=== PATIENT | male | born 1960 | race Caucasian/White ===

== ENCOUNTER 2024-01-15 08:51 | Emergency (ER) | payer MEDICARE, SELFPAY ==
[2024-01-15 08:53] VITALS: BP 161/88; PULSE 95; RESP 18; TEMP 36.7; O2SAT 97; BMI 23.0
--- NOTE | 2024-01-15 08:57 | PC.NURSE ---
Dr. Juarez at BS for pt eval
--- NOTE | 2024-01-15 08:59 | PC.NURSE ---
dr teran at bedside
--- NOTE | 2024-01-15 09:05 | ED_ITS ---
Discharge Plan Disposition Patient Disposition: Home, Self-Care Prescriptions Prescriptions: New tajdnkzr-zpimjuqsq-QT 3.5-10,000-1 mg/mL-unit/mL-% drops,suspension 4 drp otic (ear) TID 7 Days Qty: 10 0RF Referrals Follow up/Referrals: Provider,Referral, [Primary Care Provider] - See instructions Activity Restrictions/Add. Instructions Additional Instructions/Restrictions: Your ear foreign body was successfully removed there was evidence of underlying otitis externa likely secondary to the localized inflammation from the foreign body. A prescription of topical antibiotic ointment with steroids have been prescribed. Please follow-up with your primary care doctor if you are not improving. Clinical Impressions Clinical Impression: Ear foreign body, Otitis externa Instructions Patient Instructions: DI for Skin Abscess Discharge ED Provider: Uriah Juarez General Adult HPI General Chief complaint: Skin/Abscess/Foreign Body Stated complaint: hearing aid piece stuck in ear Time Seen by Provider: 01/15/24 08:56 Mode of Arrival: Ambulatory Source of Information: Patient Limitations: No Limitations Description of Symptoms (Recalled from ER Triage Doc. by RN): PT REPORTS RUBBER TIP OFF HEARING AID IS STUCK IN RIGHT EAR, DENIES PAIN History of Present Illness HPI narrative: Patient is a 63-year-old male presenting today with foreign body in his right ear. Had a small rubber piece of his hearing aid that was stuck in his ear. Family member who is a nurse was unable to get it out at home. States he does have mild pain. Related Data Previous Rx's Medication Instructions Recorded qpajgnlh-fucsbherx-mpvpniufm 3.5 4 drp otic (ear) TID 7 days #10 mL 01/15/24 mg-10,000 unit/mL-1 % ear drops,susp Allergies Allergy/AdvReac Type Severity Reaction Status Date / Time No Known Allergies Allergy Verified 01/15/24 09:03 [facility] Disclaimer: The information contained in this section may have been updated after the patient was seen, as this information can be updated by other users. Social History Smoking Status: Never smoker alcohol intake: never current occupational status: other Travel in the last 8 weeks: None ROS Obtained: Yes All systems reviewed & no additional complaints except as documented Physical Exam General General appearance: alert and in no apparent distress ENT ENT exam: Present other (Foreign body noted in external auditory canal of the right ear) Respiratory Respiratory exam: Present normal lung sounds bilaterally Cardiovascular Cardiovascular exam: Present regular rate, normal rhythm and Pacemaker not pacing now Neurological Exam Neurological exam: Present alert and oriented X3 Medical Decision Making Trey Inquiry Pt receiving controlled substance: No Vital Signs: 01/15/24 08:53 Temperature 98.0 F Temperature Source Oral Pulse Rate [Radial] 95 H Respiratory Rate 18 Blood Pressure [Right Arm] 161/88 H Blood Pressure Mean [Right Arm] 112 Blood Pressure Source [Right Arm] Automatic Cuff Blood Pressure Position [Right Arm] Sitting 02 Sat by Pulse Oximetry 97 Oxygen Delivery Method Room Air Medical Decision Narrative: Foreign body was visualized on physical exam and was successfully removed with alligator forceps. On reexamination there is underlying erythema and otitis externa prescription antibiotics and topical steroids have been sent in. No evidence of perforation. Return precautions emphasized. Procedures Foreign Body Removal Time Out Performed: No Site: right and ear Description of foreign body: other (Rubber component of hearing aid) Sedation/Analgesia: none Technique: manual removal and removal with forceps Confirmed by:: direct visualization Complications: none Post-procedure exam: awake, alert (Obvious external auditory canal inflammation consistent with otitis externa following successful and complete removal of foreign body) Critical Care Critical Care Time Critical Care Time: No
[2024-01-15 09:09] VITALS: BP 152/81; PULSE 74; RESP 18; TEMP 36.3; O2SAT 98
== END 2024-01-15 09:15 | disposition home or self-care (01) ==
LOC: ER 09:15
PROVIDERS: Emergency Provider Student in an Organized Health Care Education/Training Program
DX: T16.1XXA Foreign body in right ear, initial encounter (principal); H60.91 Unspecified otitis externa, right ear; W44.8XXA Other foreign body entering into or through a natural orifice, initial encounter
CPT/HCPCS: 69200; 99282

== ENCOUNTER 2024-02-02 18:00 | Outpatient (CLI) | payer MEDICARE, SELFPAY ==
[2024-02-02 18:02] LABS: Coronavirus 19, PCR Not Detected (NotDetected); Influenza A, PCR Not Detected (NotDetected); Influenza B, PCR Not Detected (NotDetected)
== END 2024-02-02 23:59 ==
LOC: LAB.DROPOF 02-03 11:59
PROVIDERS: PCP Nurse Practitioner; Visit Provider Nurse Practitioner
DX: J06.9 Acute upper respiratory infection, unspecified (principal); R09.82 Postnasal drip; R09.89 Other specified symptoms and signs involving the circulatory and respiratory systems; R50.9 Fever, unspecified
CPT/HCPCS: 87636

== ENCOUNTER 2024-02-21 18:00 | Outpatient (CLI) | payer MEDICARE, SELFPAY ==
[2024-02-21 18:47] LABS: Basophils # 0.1 K/mm3 (0-0.2); Eosinophils # 0.2 K/mm3 (0.0-0.4); Eosinophils % 2.4 % (0.1-12.0); Hematocrit 43.3 % (42.0-52.0); Hemoglobin 13.2 g/dL (14.1-18.0); Lymphocytes # 1.6 K/mm3 (0.7-4.5); Lymphocytes % 24.5 % (10-50); Mean Corpuscular HGB Conc 30.5 g/dL (31.8-35.4); Mean Corpuscular Hemoglobin 25.6 pg (27.0-31.2); Mean Platelet Volume 9.4 fl (7.4-10.4); Monocytes # 0.4 K/mm3 (0.1-1.0); Monocytes % 6.4 % (1.7-9.3); Neutrophils # 4.2 K/mm3 (1.8-7.8); Neutrophils % 65.7 % (37.0-80.0); Platelet Count 274 K/mm3 (142-424); Red Blood Count 5.15 M/mm3 (4.60-6.20); Red Cell Distribution Width 15.9 % (11.5-17.5); White Blood Count 6.4 K/mm3 (4.8-10.8)
[2024-02-21 19:11] LABS: Alanine Aminotransferase 41 U/L (12-78); Albumin Level 4.2 g/dl (3.5-5.0); Albumin/Globulin Ratio 1.6 (1.1-1.8); Alkaline Phosphatase 90 U/L (38-126); Anion Gap 11.7 mEq/L (5-15); Aspartate Amino Transferase 48 U/L (17-59); Bilirubin,Total 0.6 mg/dl (0.2-1.3); Blood Urea Nitrogen 12 mg/dl (9-20); Calcium 9.3 mg/dl (8.4-10.2); Carbon Dioxide 25 mmol/L (22.0-30.0); Chloride 105 mmol/L (98-107); Cholesterol 212 mg/dl (140-200); Estimated Glomerular Filt Rate 98 ml/min (>60); GFR (African American) 118 ML/MIN (>60); Globulin 2.6 g/dL (1.3-3.2); Glucose 79 mg/dl (74-100); Potassium 4.7 mmoL/L (3.5-5.1); Sodium 137 mmol/L (136-145); Total Protein,Serum 6.8 g/dl (6.3-8.2); Triglycerides 139 mg/dl (30-150); VLDL Cholesterol 28 mg/dL (0-40)
[2024-02-21 19:38] LABS: Chol/HDL Ratio 1.9 (1-3.5); HDL Cholesterol 112 mg/dl (40-60)
[2024-02-21 19:43] LABS: Prostate Specific Ag Screen 8.4 ng/ml (0.0-4.0); Thyroid Stimulating Hormone 0.46 uIU/mL (0.465-4.68)
[2024-02-21 20:01] LABS: Vitamin B12 634 pg/mL (239-931)
[2024-02-21 21:03] LABS: Hemoglobin A1C 5.8 % (4.0-6.0)
[2024-02-21 21:13] LABS: Creatinine,Urine Random 130 mg/dL (Not Estab.)
[2024-02-21 21:18] LABS: Microalbumin/Creatinine Ratio 29.3
== END 2024-02-21 23:59 | disposition home or self-care (01) ==
LOC: LAB.DROPOF 02-22 10:59
PROVIDERS: PCP Nurse Practitioner; Visit Provider Nurse Practitioner
DX: I10 Essential (primary) hypertension (principal); I25.10 Atherosclerotic heart disease of native coronary artery without angina pectoris; E78.5 Hyperlipidemia, unspecified; J44.9 Chronic obstructive pulmonary disease, unspecified; Z12.5 Encounter for screening for malignant neoplasm of prostate; Z79.899 Other long term (current) drug therapy
CPT/HCPCS: 80053; 80061; 82043; 82570; 82607; 83036; 84443; 85025; G0103

== ENCOUNTER 2024-03-05 08:57 | Outpatient (POV) | payer MEDICARE, MEDICAID, SELFPAY ==
[2024-03-05 09:28] VITALS: BP 148/91; PULSE 104; RESP 18; O2SAT 98; BMI 23.0
--- NOTE | 2024-03-05 10:09 | XR_ITS ---
FINAL REPORT CLINICAL HISTORY: MID/LOW BACK PAIN COMPARISON: None FINDINGS: 5 views of the lumbar spine were obtained. There is no evidence of fracture or dislocation. Mild and moderate degenerative changes present. There is vacuum phenomenon present at the L3-4 level. Multilevel osteophytes are noted as well as a mild leftward curvature of the lumbar spine. Vascular calcifications are present. IMPRESSION: No acute bony abnormality. Mild and moderate degenerative change as described. Reviewed, Interpreted and Dictated by Adebayo Doty III, MD Transcribed by Flakita Dumont Authenticated and [facility]
--- NOTE | 2024-03-05 10:09 | XR_ITS ---
FINAL REPORT CLINICAL HISTORY: MID/LOW BACK PAIN COMPARISON: None FINDINGS: AP, lateral, and swimmer's views of the thoracic spine were obtained. There is no prior exam for comparison. There is no acute fracture. There is mild degenerative change with small osteophytes and a mild leftward curvature. Vertebral body height is preserved. Paraspinal soft tissues are within normal limits. IMPRESSION: Mild degenerative change as described. No acute bony abnormality identified. Reviewed, Interpreted and Dictated by Adebayo Doty III, MD Transcribed by Flakita Dumont Authenticated and . [facility]
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
== END 2024-03-05 23:59 | disposition home or self-care (01) ==
PROVIDERS: PCP Nurse Practitioner; Visit Provider Nurse Practitioner Family
DX: M54.50 Low back pain, unspecified; G89.4 Chronic pain syndrome; M54.16 Radiculopathy, lumbar region; M54.6 Pain in thoracic spine
CPT/HCPCS: 72072; 72110; 99202; G0463

== ENCOUNTER 2024-03-08 12:50 | Outpatient (CLI) | payer MEDICARE, MEDICAID, SELFPAY ==
--- NOTE | 2024-03-08 12:51 | CT_ITS ---
FINAL REPORT TECHNIQUE: Thin section axial images were obtained from the lung apices to the upper abdomen by computed tomography. Reformatted images were obtained and reviewed. This study was performed with techniques to keep radiation doses al low as reasonably achievable (ALARA). Individualized dose reduction techniques using automated exposure control or adjustment of mA and/or kV according to the patient's size were employed. CLINICAL HISTORY: lung cancer screening. former smoke for 20 yrs, 1 pk per day. copd. FINDINGS: CHEST CT LOW DOSE CTDI vol (mGy): 2.90 DLP (mGy-cm): 120.63 There is severe coronary artery calcification. There are borderline sized mediastinal nodes. There is no axillary adenopathy. The heart is normal in size. There is no pericardial or pleural effusion. There is mild emphysema and mild pulmonary scarring. Lung window images demonstrate no suspicious infiltrate or nodule. Limited images of the upper abdomen reveals cholecystectomy. IMPRESSION: Severe coronary artery calcification. Lung-RADS category 1S. Recommend 12 month follow up low dose chest CT. Reviewed, Interpreted and Dictated by Adebaoy Doty III, MD Transcribed by Laquita Rodriguez Authenticated and [facility]
== END 2024-03-08 23:59 | disposition home or self-care (01) ==
LOC: RAD 12:51
PROVIDERS: PCP Nurse Practitioner; Visit Provider Nurse Practitioner
DX: Z87.891 Personal history of nicotine dependence (principal); Z12.2 Encounter for screening for malignant neoplasm of respiratory organs
CPT/HCPCS: 71271

== ENCOUNTER 2024-03-22 08:20 | Outpatient (CLI) | payer MEDICARE, MEDICAID, SELFPAY ==
--- NOTE | 2024-03-22 | MR_ITS ---
FINAL REPORT CLINICAL HISTORY: MID AND LOW BACK PAIN X'S CHRONIC. NKI. COMPARISON: None FINDINGS: Multiplanar MR imaging of the lumbar spine was performed without contrast. On the sagittal T2-weighted images, there is abnormal decreased signal throughout the lumbar discs. There is moderate loss of height at L1-2, L2-3, and L3-4. Endplate reactive signal changes are noted anteriorly at L3-4. L1-2: There is no significant canal stenosis or neural foraminal narrowing. L2-3: Mild diffuse disc bulge. Mild endplate hypertrophy. Mild to moderate right and mild left neuroforaminal narrowing. L3-4: Moderate diffuse disc bulge. Left posterolateral disc protrusion. Moderate right and moderate to high-grade left neuroforaminal narrowing. L4-5: Moderate diffuse disc bulge. Endplate hypertrophy. Moderate to high-grade bilateral neuroforaminal narrowing. L5-S1: There is no significant canal stenosis or neural foraminal narrowing. IMPRESSION: Moderate to high-grade neuroforaminal narrowing on the left at L3-4 and bilaterally at L4-5. Reviewed, Interpreted and Dictated by Zac Quesada MD Transcribed by Malia Fallon Authenticated and [facility]
--- NOTE | 2024-03-22 | MR_ITS ---
FINAL REPORT CLINICAL HISTORY: MID AND LOW BACK PAIN X'S CHRONIC. NKI. COMPARISON: None FINDINGS: Multiplanar MR imaging of the thoracic spine was performed without contrast. On the sagittal T2-weighted images, there is mild decrease signal in the mid and lower thoracic discs. There is minimal indentation of the superior endplate of a lower thoracic vertebra. There is no associated marrow edema. Findings are best seen on image 6 of series 10. The thoracic spinal cord has an unremarkable appearance without evidence of mass, edema or syrinx. On the axial images, there is no evidence of disc bulge or protrusion. There is no evidence of significant canal stenosis. No paraspinous soft tissue abnormality is seen. IMPRESSION: Mild loss of height at the superior endplate of a mid thoracic vertebra, probably due to a Schmorl's node. Reviewed, Interpreted and Dictated by Zac Quesada MD Transcribed by Malia Fallon Authenticated and [facility]
== END 2024-03-22 23:59 | disposition home or self-care (01) ==
LOC: RAD 08:20
PROVIDERS: PCP Nurse Practitioner; Visit Provider Nurse Practitioner Family
DX: M54.6 Pain in thoracic spine (principal); M54.50 Low back pain, unspecified
CPT/HCPCS: 72146; 72148

== ENCOUNTER 2024-04-05 09:47 | Outpatient (POV) | payer MEDICARE, MEDICAID, SELFPAY ==
[2024-04-05 09:55] VITALS: BP 158/94; BP 161/94; PULSE 88; RESP 16; O2SAT 96; BMI 23.3
--- NOTE | 2024-04-05 10:32 | A.OFFVIS_ITS ---
[facility] Pain Management SOAP Note Subjective:: Patient is a pleasant 63-year-old male who presents today for thoracic and lumbar MRI imaging and psychological evaluation follow-up. Today he rates his pain a 6 out of 10. Patient denies any trauma or injury. He does state that he continues to have the chronic pain throughout his mid to low back as well as bilateral shoulders and neuropathy in his feet. Patient states the pain is constant and is an aching, throbbing sensation with numbness and tingling. Patient states that it does interfere with his ability perform activities of daily living such as cooking and cleaning. Patient does state that he has continued to try conservative measures including oral medication, heat and ice, topicals, physical therapy, chiropractor therapy with minimal relief. Patient has been to see a neurosurgeon in the past and was advised to not do surgery because if he ended up having a fusion in the 1 area he would inevitably have to have fusions down the route. Patient does state that he is not interested in going that route. Patient at our last visit was discussed about the intrathecal pain pump trial. He states he did review all the information and would like to proceed forward with this plan of care. Patient has been to the psychologist for the evaluation however he has not heard on the results. Patient is prescribed [place] from an outside provider. His Trey has been reviewed and is appropriate. Review of Systems: General: No recent weight changes, no fever, no sleep disturbances Respiratory: No cough, no shortness of air, no recurring pulmonary infections Cardiovascular/peripheral vascular: No chest pain, no palpitations, no edema, no shortness of breath Gastrointestinal: No new onset incontinence, normal bowel movements reported Genitourinary: No new onset incontinence Musculoskeletal: Low back pain Psychiatric: [Normal mood/affect] Neurological: [Denies weakness in extremities], [denies balance issues] Objective:: Physical Exam: General: Alert and oriented x3, no acute distress, pleasant and cooperative Lungs: Respirations even and unlabored, symmetrical chest expansion Eyes: PERRL Musculoskeletal: Flexion and extension of lumbar [spine] somewhat guarded secondary to pain, [antalgic gait noted] Neurological: Speech clear, no gross sensory deficit Assessment:: 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 I have reviewed over again the risk and benefits of the intrathecal pain pump trial and he would like to proceed forward with this plan of care. Patient is not on any blood thinners. Patient did have a psychological evaluation and was deemed an appropriate candidate for this device. Due to limited availability here at the [facility] we will plan on submitting to insurance for the intrathecal pain pump trial under fluoroscopy to be done at the [facility] location. Patient is agreeable to this plan of care. Patient has tried and failed conservative therapy including continued at home exercising and stretching for longer than 6 weeks. We will forward our notes to the [facility] and they will reach out to this patient with date and time of this procedure. Patient has been instructed to contact the clinic with any concerns before the next appointment. Dr. Sky has reviewed this note and agrees with this plan of care. This note was dictated using voice recognition software and make contain errors or omissions. [facility] Disclaimer: The information contained in this section may have been updated after the patient was seen, as this information can be updated by other users. Medical History (Updated 04/05/24 @ 11:03 by Antoinette Walker [facility]) Elevated PSA measurement Personal history of smoking Screening for malignant neoplasm of colon COPD (chronic obstructive pulmonary disease) Hyperlipidemia CAD (coronary artery disease) Essential hypertension Chronic back pain Hypertension Surgical History History of colonoscopy (~1999) History of heart artery stent Hx of cholecystectomy H/O hernia repair H/O knee surgery H/O shoulder surgery History of hip surgery Family History Other Alzheimer's dementia Cancer Diabetes Heart attack Hypertension Social History (Updated 03/05/24 @ 09:29 by Luzmaria Elizabeth RN) Smoking Status: Never smoker alcohol intake: never current occupational status: other Travel in the last 8 weeks: None
== END 2024-04-05 23:59 | disposition home or self-care (01) ==
LOC: SC.PAIN 09:47
PROVIDERS: PCP Nurse Practitioner; Visit Provider Nurse Practitioner Family
DX: M51.14 Intervertebral disc disorders with radiculopathy, thoracic region (principal); M51.16 Intervertebral disc disorders with radiculopathy, lumbar region; M25.511 Pain in right shoulder; M25.512 Pain in left shoulder; M25.559 Pain in unspecified hip; G89.4 Chronic pain syndrome; G62.9 Polyneuropathy, unspecified
CPT/HCPCS: 99212; G0463

== ENCOUNTER 2024-07-23 09:39 | Emergency (ER) | payer MEDICARE, MEDICAID, SELFPAY ==
[2024-07-23] VITALS (9 sets, daily range): BP systolic 128–186; BP diastolic 75–111; PULSE 55–90; RESP 16–20; TEMP 36.8; O2SAT 94–98; BMI 23.7
--- NOTE | 2024-07-23 09:45 | ECG_ITS ---
APPROVED REPORT Exam: Resting ECG HR:90 bpm ECG Measurements Heart Rate 90 AXES VA 139 P 36 QRSd 138 QRS 106 QT 373 T 50 QTc 421 Conclusion SINUS RHYTHM WITH OCCASIONAL VENTRICULAR PREMATURE COMPLEXES WITH OCCASIONAL SUPRAVENTRICULAR PREMATURE COMPLEXES RIGHT AXIS DEVIATION [QRS AXIS > 100] RIGHT BUNDLE BRANCH BLOCK [120+ ms QRS DURATION, UPRIGHT V1, 40+ ms S IN I/aVL/V4/V5/V6] ABNORMAL ECG Electronically signed by : Julian Hatfield, 07/23/2024 17:36:26
--- NOTE | 2024-07-23 09:55 | HMH.EDGENADL ---
Discharge Plan Disposition Patient Disposition: Home, Self-Care Condition: Good Prescriptions Prescriptions: No Action aspirin [Adult Aspirin Regimen] 81 mg tablet,delayed release (DR/EC) 81 mg PO DAILY omeprazole 40 mg capsule,delayed release(DR/EC) 40 mg PO .PRN rosuvastatin 40 mg tablet 40 mg PO DAILY nitroglycerin 0.4 mg tablet, sublingual 0.4 mg sublingual Q5M PRN (Reason: Chest Pain) Rx Instructions: do not exceed 3 doses per episode Striverdi Respimat 2.5 mcg/actuation mist 2 inh inhalation DAILY albuterol sulfate 90 mcg/actuation HFA aerosol inhaler 2 puff inhalation QID cetirizine 10 mg tablet 10 mg PO DAILY Qty: 30 5RF olmesartan 20 mg tablet 20 mg PO DAILY Qty: 30 2RF Referrals Follow up/Referrals: Ruthie Pillai APRN [Primary Care Provider] - See instructions Steve Carter MD [Staff Physician] - See instructions Activity Restrictions/Add. Instructions Additional Instructions/Restrictions: Follow-up with cardiology as soon as possible. They will call you with an appointment. If they do not call you by the end of today, give them a call tomorrow. Return to the emergency department if you develop chest pain, worsening shortness of breath, or become concerned for your health. Please follow up with your primary care provider in 2-3 days. Please return to ED if your symptoms worsen, change in location, change in severity, new symptoms develop or if you become concerned for your health. Clinical Impressions Clinical Impression: Heart palpitations, Chest pain, Asymptomatic hypertensive urgency Print Language Print Language: [place]ralt[place] Discharge ED Provider: Julian Hatfield Adult HPI General Chief complaint: Chest Pain Stated complaint: High BP, heart palp, Time Seen by Provider: 07/23/24 09:54 Mode of Arrival: Ambulatory Source of Information: Patient Limitations: No Limitations Description of Symptoms (Recalled from ER Triage Doc. by RN): Pt c/o uncontrolled BP over the last 2 days. Pt has had a PA back in 2005 and has 3 stents. History of Present Illness HPI narrative: Patient is a 63-year-old male with history of hypertension, hyperlipidemia, chronic low back pain and chronic leg pain, CAD s/p PCI in 2005. Patient is concerned about high blood pressure. He is currently on olmesartan 20 mg daily. He reports that Tuesday he had some anterior chest pain that did not radiate. Not made worse by exertion. He reports that he took 1 sublingual nitroglycerin and his chest pain improved, but he developed a headache. During that time, his blood pressure dropped to systolic in the 90s. He reports otherwise his systolic blood pressures up in the 170s to 180s, and he has been feeling palpitations throughout the weekend. Again, not made worse by exertion. He reports chronic shortness of breath that has not been worse over the last week, he does have a history of COPD and is still smoking. He denies any numbness, weakness, tingling. He does have chronic pain in his bilateral legs. No difficulties urinating or stooling. Related Data Home Medications ?Medication ?Instructions ?Recorded ?Confirmed albuterol sulfate 90 mcg/actuation 2 puff inhalation QID 02/02/24 07/23/24 aerosol inhaler aspirin 81 mg tablet,delayed 81 mg PO DAILY 02/02/24 07/23/24 release (Adult Aspirin Regimen) nitroglycerin 0.4 mg sublingual 0.4 mg sublingual Q5M PRN Chest 02/02/24 07/23/24 tablet Pain olodaterol 2.5 mcg/actuation mist 2 inh inhalation DAILY 02/02/24 07/23/24 for inhalation (Striverdi Respimat) omeprazole 40 mg capsule,delayed 40 mg PO .PRN 02/02/24 07/23/24 release rosuvastatin 40 mg tablet 40 mg PO DAILY 02/02/24 07/23/24 Previous Rx's ?Medication ?Instructions ?Recorded cetirizine 10 mg tablet 10 mg PO DAILY #30 tabs 02/02/24 olmesartan 20 mg tablet 20 mg PO DAILY #30 tabs 05/16/24 Allergies Allergy/AdvReac Type Severity Reaction Status Date / Time No Known Allergies Allergy Verified 02/21/24 08:03 [facility] Disclaimer: The information contained in this section may have been updated after the patient was seen, as this information can be updated by other users. Medical History (Updated 07/23/24 @ 12:55 by Julian Hatfield MD) Elevated PSA measurement Personal history of smoking Screening for malignant neoplasm of colon COPD (chronic obstructive pulmonary disease) Hyperlipidemia CAD (coronary artery disease) Essential hypertension Chronic back pain Hypertension Surgical History History of colonoscopy (~1999) History of heart artery stent Hx of cholecystectomy H/O hernia repair H/O knee surgery H/O shoulder surgery History of hip surgery Family History Other Alzheimer's dementia Cancer Diabetes Heart attack Hypertension Social History (Updated 03/05/24 @ 09:29 by Luzmaria Elizabeth RN) Smoking Status: Current some day smoker alcohol intake: never current occupational status: other Travel in the last 8 weeks: None ROS Obtained: Yes All systems reviewed & no additional complaints except as documented Physical Exam General General appearance: alert and in no apparent distress Head Head exam: atraumatic and normocephalic Eye Eye exam: Present PERRL and EOMI ENT ENT exam: Present normal oropharynx Neck Neck exam: Present full ROM and trachea midline Chest Chest inspection: Present symmetric chest wall rise Respiratory Respiratory exam: Present normal lung sounds bilaterally; Absent stridor Cardiovascular Cardiovascular exam: Present regular rate and normal rhythm Abdominal Exam Abdominal exam: Present soft; Absent distention or tenderness Extremities Exam Extremities exam: Present full ROM Neurological Exam Neurological exam: Present alert, oriented X3 and CN II-XII intact; Absent motor sensory deficit Psychiatric Psychiatric exam: Present normal mood Skin Skin exam: Present warm and dry Medical Decision Making Medical Records Medical records reviewed: Yes I reviewed the patient's medical records. Screening: Per USPSTF and CDC recommendations, given the prevalence of disease in our region, it is our hospital?s policy to screen for HIV and viral Hepatitis for all patients aged 18 and over and those with ongoing risk factors. Trey Inquiry Pt receiving controlled substance: No Vital Signs: 07/23/24 09:45 07/23/24 09:47 07/23/24 09:48 Temperature Pulse Rate 67 90 Pulse Rate [Right Brachial] 85 Respiratory Rate 18 Blood Pressure 186/111 H Blood Pressure [Right Arm] 186/111 H Blood Pressure Mean Blood Pressure Mean [Right Arm] 136 02 Sat by Pulse Oximetry 96 94 L 97 Oxygen Delivery Method Room Air 07/23/24 10:32 07/23/24 11:00 07/23/24 11:30 Temperature Pulse Rate 55 L 73 72 Pulse Rate [Right Brachial] Respiratory Rate 18 16 Blood Pressure 178/102 H 146/88 H 159/94 H Blood Pressure [Right Arm] Blood Pressure Mean 118 Blood Pressure Mean [Right Arm] 02 Sat by Pulse Oximetry 98 94 L 95 Oxygen Delivery Method Room Air Room Air 07/23/24 12:00 07/23/24 12:31 07/23/24 13:21 Temperature 98.2 F Pulse Rate 81 83 83 Pulse Rate [Right Brachial] Respiratory Rate 20 Blood Pressure 128/85 151/75 H 151/75 H Blood Pressure [Right Arm] Blood Pressure Mean 99 100 Blood Pressure Mean [Right Arm] 02 Sat by Pulse Oximetry 94 L 96 Oxygen Delivery Method Room Air Room Air Room Air Lab Data Lab Results 07/23/24 09:45: HIV 1&2 Antibody Rapid Nonreactive 07/23/24 09:48: WBC 9.1, RBC 5.84, Hgb 15.4, Hct 51.2, MCV 87.7, MCH 26.4 L, MCHC 30.1 L, RDW 16.3, Plt Count 283, MPV 7.2 L, Neut % (Auto) 66.9, Lymph % (Auto) 23.8, [place] % (Auto) 6.6, Eos % (Auto) 2.0, Baso % (Auto) 0.7, Neut # (Auto) 6.1, Lymph # (Auto) 2.2, [place] # (Auto) 0.6, Eos # (Auto) 0.2, Baso # (Auto) 0.1, PT 10.5, INR 0.93, Sodium 138, Potassium 4.1, Chloride 103, Carbon Dioxide 27, Anion Gap 12.1, BUN 10, Creatinine 0.80, Estimated Creat Clear 85, Estimated GFR 98, Est GFR ( Amer) 118, Glucose 141 H, Calcium 10.0, Total Bilirubin 0.8, AST 54, ALT 42, Alkaline Phosphatase 114, Troponin I 0.06 H, NT-Pro-B Natriuret Pep 163 H, Total Protein 7.7, Albumin 4.6, Globulin 3.1, Albumin/Globulin Ratio 1.5 07/23/24 11:25: Urine Color Yellow, Urine Appearance Clear, Urine pH 6.5, Ur Specific [place] <= 1.005, Urine Protein Negative, Urine Glucose (UA) Negative, Urine Ketones Negative, Urine Blood Negative, Urine Nitrate Negative, Urine Bilirubin Negative, Urine Urobilinogen 0.2, Ur Leukocyte Esterase 1+ A, Urine RBC None, Urine WBC Occasional, Ur Squamous Epith Cells Occasional, Urine Bacteria Trace 07/23/24 11:51: Troponin I 0.06 H 07/23/24 09:48 07/23/24 09:48 Orders (Tests/Meds): ORDERS Category Date Time Status XR chest 2V Stat Exams 07/23/24 10:13 Completed Complete Blood Count Auto Diff Stat Lab 07/23/24 09:48 Completed Comprehensive Metabolic Panel Stat Lab 07/23/24 09:48 Completed HIV (1&2) Antibody Rapid Stat Lab 07/23/24 09:45 Completed Hep C Ab with Reflex to RNA Stat Lab 07/23/24 09:45 Received NT Pro Brain Natriuretic Pep. Stat Lab 07/23/24 09:48 Completed Prothrombin Time INR Stat Lab 07/23/24 09:48 Completed Troponin I Q3H Lab 07/23/24 11:51 Completed Troponin I Stat Lab 07/23/24 09:48 Completed Urinalysis and Microscopic Stat Lab 07/23/24 11:25 Completed Urine Culture Stat Micro 07/23/24 11:25 Received ECG Data Tracing #1: I reviewed this ECG and interpreted as documented below: Normal sinus rhythm with a right bundle branch block, peaked T waves in the precordial leads (no hyper K on labs, no CP while here, favored to be nonspecific), no acute ischemic ST changes. intervals wnl. HEART Score History (anamnesis): Slightly suspicious ECG: Non-specific disturbance Age: 45-65 years Risk factors: 3 or more risk factors Troponin: 1-3x normal limit HEART Score: 5 Medical Decision Narrative: In summary, this 63-year-old male presents to the emergency department today with palpitations, high blood pressure. On initial evaluation patient is afebrile, hypertensive to 186/111, on repeat systolic in 170s, otherwise stable. On exam, heart is regular rate and rhythm and patient appears warm and well-perfused without significant lower extremity edema. Lung sounds are distant bilaterally with prolonged expiratory phase, no focal breath sounds. Differential diagnosis includes but is not limited to hypertensive urgency, hypertensive emergency, ACS, PA, electrolyte disturbance, MAMADOU. Based on these concerns, I ordered CBC CMP chest x-ray PT/INR. Labs personally reviewed demonstrate no evidence of anemia no leukocytosis no significant electrolyte derangement. Troponin elevated to 0.06, obtained repeat 2 hours later and stable at 0.06. Favored to be sensitive given patient not having any active chest pain and reports that it occurred a couple of days ago. No blood in the urine, creatinine within normal limits. No evidence of endorgan damage suggestive of hypertensive emergency . XR personally interpreted demonstrates no acute intrathoracic process. This is confirmed by the radiologist final read.. On reassessment patient reports improvement in his symptoms since he has been here. He was worried about his blood pressure, however after observation the emergency department, does come down on its own repeat blood pressure is 151/75. He reports no chest pain or shortness of breath while here. Nevertheless, given patient's sense of history and heart score of 5, felt reasonable to refer for high risk cardiology follow-up outpatient. Informed business support assistant office of this and they will be reaching out to him with an appointment in the coming days for both ACS workup as well as hypertension management. I considered the utility of increasing patient's antihypertensives at home, however he reported to me that he had had episodes of hypotension within the last week after self adjusting his medicines. He is instructed to not do that any longer as he needs to be on the same dose every day for consistent effect. . Strict return precautions discussed and patient management plan.. Of note, social determinants of health include difficulty accessing a specialist previously, specifically cardiology. At this time it was felt that the patient was safe to be discharged home. The patient was in agreement with this plan. The patient was given strict return precautions prior to being discharged from the emergency department. Critical Care Critical Care Time Critical Care Time: No
--- NOTE | 2024-07-23 10:03 | PC.NURSE ---
Dr. Hatfield at bedside
--- NOTE | 2024-07-23 10:13 | XR_ITS ---
FINAL REPORT TECHNIQUE: Chest PA & Lateral CLINICAL HISTORY: Nonspecific chest pain, palps COMPARISON: None FINDINGS: 2 views of the chest were performed. The heart size is normal. The mediastinum is within normal limits. There is no acute cardiopulmonary process. There are no pleural effusions. There is no pneumothorax. The bony thorax appears intact. IMPRESSION: No acute cardiopulmonary process. Reviewed, Interpreted and Dictated by Zac Quesada MD Transcribed by Thuy Jain Authenticated and [facility]
[2024-07-23 10:23] LABS: Albumin Level 4.6 g/dl (3.5-5.0); Chloride 103 mmol/L (98-107); Sodium 138 mmol/L (136-145)
[2024-07-23 10:24] LABS: Potassium 4.1 mmoL/L (3.5-5.1)
[2024-07-23 10:26] LABS: Alanine Aminotransferase 42 U/L (12-78); Albumin/Globulin Ratio 1.5 (1.1-1.8); Alkaline Phosphatase 114 U/L (38-126); Anion Gap 12.1 mEq/L (5-15); Aspartate Amino Transferase 54 U/L (17-59); Bilirubin,Total 0.8 mg/dl (0.2-1.3); Blood Urea Nitrogen 10 mg/dl (9-20); Carbon Dioxide 27 mmol/L (22.0-30.0); Creatinine Clearance Estimated 85 mL/min (50-200); Estimated Glomerular Filt Rate 98 ml/min (>60); GFR (African American) 118 ML/MIN (>60); Globulin 3.1 g/dL (1.3-3.2); Total Protein,Serum 7.7 g/dl (6.3-8.2)
[2024-07-23 10:27] LABS: Glucose 141 mg/dl (74-100)
[2024-07-23 10:29] LABS: Basophils # 0.1 K/mm3 (0-0.2); Basophils % 0.7 % (0.1-2.0); Eosinophils # 0.2 K/mm3 (0.0-0.4); Hematocrit 51.2 % (42.0-52.0); Hemoglobin 15.4 g/dL (14.1-18.0); Lymphocytes # 2.2 K/mm3 (0.7-4.5); Lymphocytes % 23.8 % (10-50); Mean Corpuscular HGB Conc 30.1 g/dL (31.8-35.4); Mean Corpuscular Hemoglobin 26.4 pg (27.0-31.2); Mean Corpuscular Volume 87.7 fl (80-94); Mean Platelet Volume 7.2 fl (7.4-10.4); Monocytes # 0.6 K/mm3 (0.1-1.0); Monocytes % 6.6 % (1.7-9.3); Neutrophils # 6.1 K/mm3 (1.8-7.8); Neutrophils % 66.9 % (37.0-80.0); Platelet Count 283 K/mm3 (142-424); Red Blood Count 5.84 M/mm3 (4.60-6.20); Red Cell Distribution Width 16.3 % (11.5-17.5); White Blood Count 9.1 K/mm3 (4.8-10.8)
--- NOTE | 2024-07-23 10:31 | PC.NURSE ---
pt back in room from x-ray
[2024-07-23 10:36] LABS: NT Pro Brain Natriuretic Pep. 163 pg/mL (0-125)
[2024-07-23 10:37] LABS: INR 0.93 (0.9-1.1); Prothrombin Time 10.5 seconds (10.1-12.5)
[2024-07-23 10:38] LABS: Troponin I 0.06 ng/ml (0.00-0.034)
--- NOTE | 2024-07-23 10:44 | PC.NURSE ---
ice pack and blanket given to patient.
[2024-07-23 11:20] LABS: HIV (1&2) Antibody Rapid NONREACTIVE (NONREACTIVE)
--- NOTE | 2024-07-23 11:25 | PC.NURSE ---
PT PROVIDED SANDWICH, CHIPS AND DRINK. CALL LIGHT WITHIN REACH. NO FURTHER NEEDS AT THIS TIME
[2024-07-23 11:29] LABS: Microscopic, Urine URINE MICROSCOPIC (MICROSCOPIC)
[2024-07-23 11:39] LABS: Appearance,Urine CLEAR (Clear); Bilirubin,Urine Negative (Negative); Blood, Urine Negative (Negative); Color,Urine YELLOW (Yellow); Glucose,Urine (UA) Negative (Negative); Ketones,Urine Negative (Negative); Leukocyte Esterase,Urine 1+ (Negative); Nitrate,Urine Negative (Negative); PH,Urine 6.5 (5.0-8.5); Protein,Urine Negative (Negative); Specific Gravity, Urine <= 1.005 (1.005-1.030); Urobilinogen,Urine 0.2 EU/dl (0.2)
[2024-07-23 11:49] LABS: Bacteria,Urine Trace /lpf; Squamous Epithelial Cell,Urine Occasional #/hpf (0-5); WBC,Urine Occasional #/hpf (0-3)
[2024-07-23 12:20] LABS: Troponin I 0.06 ng/ml (0.00-0.034)
--- NOTE | 2024-07-23 12:49 | PC.NURSE ---
Dr. Hatfield at bedside for pt update
--- NOTE | 2024-07-23 15:03 | PC.NURSE ---
PT NOTIFIED OF CARDIOLOGY APPT ON TUESDAY AT 5600
[2024-07-24 08:19] LABS: HCV Ab Non Reactive (Non Reactive)
== END 2024-07-23 13:22 | disposition home or self-care (01) ==
PROVIDERS: Emergency Provider Emergency Medicine; PCP Nurse Practitioner
DX: R07.9 Chest pain, unspecified (principal); I16.0 Hypertensive urgency; R00.2 Palpitations; I45.10 Unspecified right bundle-branch block; Z86.79 Personal history of other diseases of the circulatory system; Z95.5 Presence of coronary angioplasty implant and graft; I10 Essential (primary) hypertension
CPT/HCPCS: 71046; 80053; 81001; 83880; 84484; 85025; 85610; 86803; 87086; 87389; 93005; 99284

== ENCOUNTER 2024-08-06 08:45 | Outpatient (CLI) | payer MEDICARE, MEDICAID, SELFPAY ==
--- NOTE | 2024-08-06 09:02 | CA_ITS ---
APPROVED REPORT EXAM: Comprehensive 2D, Doppler, and color-flow Echocardiogram Speech And Language Clinician: Evita Paulson RT(R) Ht: 6 ft 0 in Wt: 178lbs BSA: 2.03 BP: 176/98 mmHg Indications: CP, COPD, smoker,palpitations, fatigue, HTN, SOB, CAD, abn EKG 2D Dimensions LVEF (Ward's) 49.40 % M: 52 - 72 LV Volume 145.10 mL M: 62 - 150 LV Volume Index 71.5 mL/m2 M: 34 - 74 LA Volume 43.90 mL LA Volume Index 21.63 mL/m2 (M/F) 16-34 EF AP4 58.10 % EF AP2 36.9 % EF BP 49.4 % GL Strain -18.1 % M-Mode Dimensions RVDd 2.89 cm (0.9-2.6) LA Diam 4.00 cm (1.9-4.0) LVDd 5.55 cm (3.5-5.7) LVDs 4.90 cm (3.5-5.7) IVSd 1.09 cm (0.6-1.1) PWd 0.80 cm (0.6-1.1) EF (Teich) 25.00% FS 11.70% EDV (Teich) 150.50 mL TAPSE 2.00 (<1.7) ESV (Teich) 112.80 mL LV Diastology E Decel Time 160 (160-240 msec) E/A Ratio 1.1 Mitral Valve MV E Max Phillip. 93.0 (40-130 cm/s) MV A Velocity 84.0 (40-130 cm/s) E/A Ratio 1.10 MV PHT 47.0 ms Left Ventricle The left ventricle is normal size. Left ventricular systolic function is mild to moderately decreased. There is increased LV wall thickness. There is mild to moderate global hypokinesis present. There is moderate hypokinesis of the basal anterolateral and inferolateral LV carey. Asynchronous septum. Grade 1 diastolic dysfunction is present. LVEF is 40%. Right Ventricle The right ventricle is normal size. The right ventricular systolic function is normal. Atria The left atrium size is normal. The right atrium size is normal. There is no Doppler evidence of interatrial shunt. Aortic Valve The aortic valve is mildly thickened. Trace aortic regurgitation. There is no aortic valvular stenosis. Mitral Valve The mitral valve leaflets are mildly thickened. Moderate mitral regurgitation. No evidence of mitral valve stenosis. Tricuspid Valve The tricuspid valve leaflets are thin and pliable. Mild tricuspid regurgitation. RVSP is 25-30 mmHg. Pulmonic Valve The pulmonary valve is normal in structure. Trace pulmonic regurgitation. Great Vessels The aortic root is normal in size. The ascending aorta is not well-visualized. IVC is normal in size and collapses >50% with inspiration. Pericardium There is no pericardial effusion. Other Information Study Quality: Fair Conclusion Mild to moderate reduction in LV systolic function (LVEF 40%). Moderate hypokinesis of the basal anterolateral and inferolateral LV carey. Asynchronous septum. Moderate MR. Mild TR. Electronically signed by : Michelle Brasher MD 08/07/2024 00:21:53
== END 2024-08-06 23:59 | disposition home or self-care (01) ==
LOC: RT 08:46
PROVIDERS: PCP Nurse Practitioner; Visit Provider Physician Assistant
DX: I05.1 Rheumatic mitral insufficiency (principal)
CPT/HCPCS: 93306

== ENCOUNTER 2024-08-07 07:55 | Day surgery (SDC) | payer MEDICARE, MEDICAID, SELFPAY ==
[2024-08-07] VITALS (12 sets, daily range): BP systolic 121–170; BP diastolic 56–102; PULSE 67–79; RESP 18–19; TEMP 36.6; O2SAT 95–100; BMI 24.1
--- NOTE | 2024-08-07 07:05 | IR_ITS ---
APPROVED REPORT Patient Location: [facility] Programmer: LUKE Santiago RT (R) PROCEDURES Selective coronary angiogram Drug-eluting stent deployment to the proximal ramus intermedius INDICATION Coronary artery disease, Progressive angina pectoris, Abnormal echocardiogram Informed consent was obtained prior to the procedure. COMPLICATIONS None Estimated Blood Loss: Less than 10 mls TECHNIQUE One percent lidocaine used to anesthetize the right anterior aspect of the wrist. The right radial artery was accessed via the Seldinger technique. A 6 Wallisian sheath was placed in the right radial artery. 2.5 mg of Verapamil, 800 mcg of nitroglycerin, 1mg Lidocaine and 5000 U Heparin were given through the arterial sheath. The JL 3 catheter was also used to perform selective coronary angiogram. At the end the diagnostic angiogram therapeutic heparin was administered giving a therapeutic ACT to guide catheters placed in left main artery followed by Choice PT extra-support wire placed down the ramus intermedius. A 2.75 x 22 mm Eusebio frontier stent was deployed in the proximal ramus intermedius at 20 pema reducing the stenosis to 0%. CARLITOS-3 flow was present before and after the procedure. At the end the procedure the apparatus was removed the sheath was removed and hemostasis was achieved using TR banding patient was transferred to the postop holding in stable condition ANGIOGRAPHIC RESULTS The left main artery Normal The left anterior descending artery Is proximally normal and has mid vessel smooth tandem 20 and 30% stenoses. The remaining LAD is widely patent and wraps the apex. First diagonal artery is large and has an ostial 80% stenosis followed by proximal 70 to 80% stenosis. This first diagonal artery is 2 mm in diameter however the vessel itself is long The circumflex artery Gives rise to a large ramus intermedius which has a proximal hazy 70 to 80% stenosis. The circumflex artery is dominant and has proximal 20% stenosis with a 30 to 40% stenosis of the first obtuse marginal artery The right coronary artery Is nondominant yet still large with proximal and mid vessel 30% stenoses The ROSALES ventriculogram reveals Not performed The left ventricular end-diastolic pressure Not measured IMPRESSION Severe disease in a small caliber long first diagonal artery which is best managed medically Severe disease in a large ramus intermedius Mild to moderate diffuse coronary disease as described above PLAN 1. Effient and aspirin 2. Maximize antianginal medications. Currently patient is on 1 antianginal medication. The diagonal artery could be stented however this would require bifurcating stenting into the proximal LAD and the LAD is otherwise nonischemic. This vessel was highly amenable to medical management 3. Avoidance of tobacco products 4. LDL less than 55 to be achieved with high intensity statin Electronically signed by : Steve Carter MD 08/07/2024 10:41:14
[2024-08-07 08:34] LABS: Basophils # 0.1 K/mm3 (0-0.2); Basophils % 0.8 % (0.1-2.0); Eosinophils # 0.2 K/mm3 (0.0-0.4); Eosinophils % 2.4 % (0.1-12.0); Hematocrit 44.8 % (42.0-52.0); Hemoglobin 14.3 g/dL (14.1-18.0); Lymphocytes # 1.8 K/mm3 (0.7-4.5); Mean Corpuscular HGB Conc 32.1 g/dL (31.8-35.4); Mean Corpuscular Hemoglobin 26.8 pg (27.0-31.2); Mean Corpuscular Volume 83.7 fl (80-94); Mean Platelet Volume 7.9 fl (7.4-10.4); Monocytes # 0.6 K/mm3 (0.1-1.0); Monocytes % 6.3 % (1.7-9.3); Neutrophils # 7.1 K/mm3 (1.8-7.8); Neutrophils % 72.5 % (37.0-80.0); Platelet Count 207 K/mm3 (142-424); Red Blood Count 5.35 M/mm3 (4.60-6.20); Red Cell Distribution Width 16.8 % (11.5-17.5); White Blood Count 9.8 K/mm3 (4.8-10.8)
[2024-08-07 08:36] LABS: Chloride 109 mmol/L (98-107); Sodium 140 mmol/L (136-145)
[2024-08-07 08:37] LABS: Potassium 4.1 mmoL/L (3.5-5.1)
[2024-08-07 08:39] LABS: Blood Urea Nitrogen 11 mg/dl (9-20); Creatinine Clearance Estimated 86 mL/min (50-200); Estimated Glomerular Filt Rate 98 ml/min (>60); GFR (African American) 118 ML/MIN (>60)
[2024-08-07 08:40] LABS: Anion Gap 12.1 mEq/L (5-15); Calcium 9.5 mg/dl (8.4-10.2); Carbon Dioxide 23 mmol/L (22.0-30.0); Glucose 115 mg/dl (74-100)
[2024-08-07] MEDS: HEPARIN 1,000 UNITS/500ML NS (CATH LAB) 3000 UNIT IV (10:04)
[2024-08-07] MEDS: HEPARIN 1,000 UNITS/ML 10ML VIAL (CATH LAB) 10000 UNIT IV (10:05)
[2024-08-07] MEDS: VERAPAMIL 2.5MG/ML 2ML VIAL 2.5 MG IV (10:05)
[2024-08-07] MEDS: 0.9 % SODIUM CHLORIDE 500 ML 25 ML IV (10:05)
[2024-08-07] MEDS: LIDOCAINE 1% 10ML MDV 20 ML IJ (10:05)
[2024-08-07] MEDS: diphenhydrAMINE 50MG/ML VIAL 50 MG IV (10:06)
[2024-08-07] MEDS: NITROGLYCERIN 800MCG/8ML SYR (CATH LAB) 800 MCG IA (10:06)
[2024-08-07] MEDS: FENTANYL 100MCG/2ML VIAL 50 MCG IV (10:24)
[2024-08-07] MEDS: MIDAZOLAM HCL 1MG/1ML 5ML VIAL 1 MG IV ×2 (10:25→10:30)
[2024-08-07] MEDS: FENTANYL 100MCG/2ML VIAL 25 MCG IV (10:31)
[2024-08-07] MEDS: PRASUGREL 10MG TAB 60 MG PO (10:40)
[2024-08-07] MEDS: IOPAMIDOL-370 (76%);100ML BOTTLE 90 ML IV (13:29)
[2024-08-07 13:33] LABS: CATHL Activated Clotting Time 295 SEC (74-125)
== END 2024-08-07 13:35 | disposition home or self-care (01) ==
PROVIDERS: PCP Nurse Practitioner; Visit Provider Internal Medicine
DX: R94.31 Abnormal electrocardiogram [ECG] [EKG]; R06.00 Dyspnea, unspecified; R07.9 Chest pain, unspecified; R00.2 Palpitations; I25.118 Atherosclerotic heart disease of native coronary artery with other forms of angina pectoris; J44.9 Chronic obstructive pulmonary disease, unspecified; F17.210 Nicotine dependence, cigarettes, uncomplicated; I10 Essential (primary) hypertension; Z95.5 Presence of coronary angioplasty implant and graft; Z79.899 Other long term (current) drug therapy
CPT/HCPCS: 80048; 85025; 85347; 92928; 93306; 93454; 99152; C1725; C1769; C1874; C9600; J1200; J1644; J2250; J3010; Q9967

== ENCOUNTER 2024-08-09 12:27 | Outpatient (CLI) | payer MEDICARE, MEDICAID, SELFPAY ==
[2024-08-09 12:46] LABS: Basophils # 0.1 K/mm3 (0-0.2); Basophils % 1.5 % (0.1-2.0); Eosinophils # 0.2 K/mm3 (0.0-0.4); Eosinophils % 2.6 % (0.1-12.0); Hematocrit 45.4 % (42.0-52.0); Hemoglobin 14.9 g/dL (14.1-18.0); Lymphocytes # 2.3 K/mm3 (0.7-4.5); Lymphocytes % 27.3 % (10-50); Mean Corpuscular HGB Conc 32.8 g/dL (31.8-35.4); Mean Corpuscular Hemoglobin 27.3 pg (27.0-31.2); Mean Corpuscular Volume 83.1 fl (80-94); Monocytes # 0.5 K/mm3 (0.1-1.0); Monocytes % 5.4 % (1.7-9.3); Neutrophils # 5.4 K/mm3 (1.8-7.8); Neutrophils % 63.2 % (37.0-80.0); Platelet Count 225 K/mm3 (142-424); Red Blood Count 5.47 M/mm3 (4.60-6.20); Red Cell Distribution Width 16.6 % (11.5-17.5); White Blood Count 8.5 K/mm3 (4.8-10.8)
[2024-08-09 13:40] LABS: Chloride 106 mmol/L (98-107); Potassium 4.8 mmoL/L (3.5-5.1); Sodium 138 mmol/L (136-145)
[2024-08-09 13:43] LABS: Anion Gap 10.8 mEq/L (5-15); Blood Urea Nitrogen 10 mg/dl (9-20); Calcium 9.9 mg/dl (8.4-10.2); Carbon Dioxide 26 mmol/L (22.0-30.0); Estimated Glomerular Filt Rate 85 ml/min (>60); GFR (African American) 103 ML/MIN (>60); Glucose 98 mg/dl (74-100)
== END 2024-08-09 23:59 | disposition home or self-care (01) ==
LOC: LAB 12:30
PROVIDERS: PCP Nurse Practitioner; Visit Provider Internal Medicine
DX: I25.10 Atherosclerotic heart disease of native coronary artery without angina pectoris (principal)
CPT/HCPCS: 36415; 80048; 85025